=== PATIENT | male | born 1975 | race African-American/Black ===

== ENCOUNTER 2018-12-01 04:18 | Emergency (ER) | payer OTHER ==
[~2018-12-01] VITALS: Ht 198.1 cm; Wt 108.0 kg
[2018-12-01 06:51] VITALS: BP 135/78
== END 2018-12-01 06:52 | disposition home or self-care (01) ==
LOC: ER 04:18
DX: Z76.0 Encounter for issue of repeat prescription (principal); I10 Essential (primary) hypertension; S80.862A Insect bite (nonvenomous), left lower leg, initial encounter; S80.861A Insect bite (nonvenomous), right lower leg, initial encounter; S40.862A Insect bite (nonvenomous) of left upper arm, initial encounter; S40.861A Insect bite (nonvenomous) of right upper arm, initial encounter; W57.XXXA Bitten or stung by nonvenomous insect and other nonvenomous arthropods, initial encounter; Y93.89 Activity, other specified; Y92.89 Other specified places as the place of occurrence of the external cause; H00.014 Hordeolum externum left upper eyelid
CPT/HCPCS: 99283